=== PATIENT | female | born 1955 | race Caucasian/White ===

== ENCOUNTER 2024-09-14 11:45 | Day surgery (SDC) | payer MEDICARE, MEDICAID ==
[2024-09-14] VITALS (18 sets, daily range): BP systolic 118–201; BP diastolic 58–105; PULSE 61–100; RESP 10–21; TEMP 97.9; O2SAT 36–100
[~2024-09-14] VITALS: Ht 157.5 cm; Wt 73.0 kg
[2024-09-14] MEDS ORDERED: AZAT50TA18 PO (13:06)
[2024-09-14] MEDS ORDERED: SELE200C PO (13:07)
[2024-09-14] MEDS ORDERED: MAGN400C PO (13:07)
[2024-09-14] MEDS ORDERED: FERR18CA (13:08)
[2024-09-14] MEDS ORDERED: MULT-1133 PO (13:10)
[2024-09-14] MEDS ORDERED: Tumeric PO (13:13)
[2024-09-14] MEDS ORDERED: SOUR400C (13:14)
[2024-09-14] MEDS ORDERED: QUER500C (13:15)
[2024-09-14] MEDS ORDERED: LUTE1CAP9 (13:17)
[2024-09-14] MEDS ORDERED: GARL650C (13:18)
[2024-09-14] MEDS ORDERED: LACT1CAP26 PO (13:20)
[2024-09-14] MEDS ORDERED: CRAN500C4 PO (13:20)
[2024-09-14] MEDS ORDERED: PAPA100T (13:21)
[2024-09-14] MEDS ORDERED: OCUVITE PO (13:21)
[2024-09-14] MEDS ORDERED: NAC/1CAP (13:21)
[2024-09-14] MEDS ORDERED: HYAL60CA (13:22)
[2024-09-14] MEDS ORDERED: CHOL500049 PO (13:23)
[2024-09-14] MEDS ORDERED: UBID100C16 PO (13:24)
[2024-09-14] MEDS ORDERED: ASCO100031 PO (13:24)
[2024-09-14] MEDS ORDERED: ASPI81TA52 PO (13:25)
[2024-09-14] MEDS: fentaNYL/PF 50MCG/1 ML 2ML syringe IV ONE (13:26)
[2024-09-14] MEDS: normal saline 1000ml 1,000 ML IV SCH (13:26)
[2024-09-14] MEDS: MIDAZolam 1mg/ml 10ml vial IV ONE (13:26)
[2024-09-14] MEDS ORDERED: FLU VACC TS2024-25(6MOS UP)/PF 45 MCG/0.5 ML SYRINGE IMVAC ONE (17:15)
== END 2024-09-14 15:10 | disposition home or self-care (01) ==
LOC: SSTAY O 11:45 → EDSTATUS 15:30
PROVIDERS: ATTEND Student in an Organized Health Care Education/Training Program
DX: I08.0 Rheumatic disorders of both mitral and aortic valves (principal); I10 Essential (primary) hypertension; I25.2 Old myocardial infarction; Z79.899 Other long term (current) drug therapy
CPT/HCPCS: 93312; 93325; J2250; J3010; J7030